=== PATIENT | female | born 1950 | race Caucasian/White ===

== ENCOUNTER 2024-12-04 19:21 | Emergency (ER) | payer MEDICARE ==
[2024-12-04 19:49] LABS: BASOPHILS ABSOLUTE AUTO 0.02 K/uL (0.02-0.10); BASOPHILS PERCENT AUTO 0.2 % (0.0-0.5); EOSINOPHILS ABSOLUTE AUTO 0.21 K/uL (0.04-0.40); EOSINOPHILS PERCENT AUTO 2.4 % (1.0-5.0); HEMATOCRIT 41.1 % (37.0-47.0); HEMOGLOBIN 13.2 g/dL (11.5-16.5); LYMPHOCYTES PERCENT AUTO 29.5 % (20.0-40.0); MEAN CORPUSCULAR HEMOGLOBIN 29.7 pg (27.0-32.0); MEAN CORPUSCULAR HGB CONC 32.1 g/dL (31.0-35.0); MEAN CORPUSCULAR VOLUME 92 fL (76-96); MONOCYTES ABSOLUTE AUTO 0.75 K/uL (0.20-0.80); MONOCYTES PERCENT AUTO 8.5 % (3.0-10.0); NEUTROPHILS ABSOLUTE AUTO 5.23 K/uL (2.00-7.50); NEUTROPHILS PERCENT AUTO 59.4 % (45.0-70.0); PLATELET COUNT,PLT 249 K/uL (150-500); RED BLOOD CELL COUNT 4.45 M/uL (3.80-5.80); RED CELL DISTRIBUTION WIDTH 14.9 % (11.0-16.0); WHITE BLOOD CELL COUNT,WBC 8.8 K/uL (4.0-11.0)
[2024-12-04 20:10] LABS: INR 1.2 (1.0-3.5); PTT,PARTIAL THROMBOPLSTIN TIME 26.2 SECONDS (24.4-33.2)
[2024-12-04 20:11] LABS: PROTHROMBIN TIME 12.1 sec (9.0-11.5)
[2024-12-04 20:15] LABS: MAGNESIUM 1.5 mg/dL (1.8-2.4); TROPONIN I HIGH SENSITIVITY 5.7 pg/ml (<=60.4)
[2024-12-04 20:19] LABS: A/G RATIO 1.1 (0.8-2.0); ALANINE AMINOTRANSFERASE,ALT 23 U/L (12-78); ALBUMIN 3.5 g/dL (3.4-5.0); ALKALINE PHOSPHATASE 84 U/L (46-116); ASPARTATE AMNIOTRANSFERASE,AST 17 U/L (15-37); BILIRUBIN TOTAL 0.4 mg/dL (0.0-1.0); BLOOD UREA NITROGEN,BUN 27 mg/dL (8-26); BUN/CREATININE RATIO 10.2 (6-25); CALCIUM 9.2 mg/dL (8.5-10.1); CARBON DIOXIDE,CO2 29.2 mmol/L (21.0-32.0); CHLORIDE,CL 107 mmol/L (98-107); CREATININE 2.65 mg/dL (0.55-1.02); ESTIMATED GFR 18 mL/min (>60); GLUCOSE RANDOM 228 mg/dL (74-100); POTASSIUM,K 5.2 mmol/L (3.5-5.1); PROTEIN TOTAL,TP 6.6 g/dL (6.4-8.2); SODIUM,NA 143 mmol/L (136-145)
[2024-12-04] MEDS: Sodium Chloride 0.9% 1,000 ML IV ONE (20:43)
[2024-12-04] MEDS: Heparin Sodium 5,000 Units/ML Vial IVPUSH ONE ×2 (21:34→21:35)
[2024-12-04] MEDS: Heparin Sodium/D5W 25,000 UNITS/500 ML BAG IV SCH (21:35)
[2024-12-04 22:19] VITALS: BP 137/53; PULSE 75
== END 2024-12-04 22:52 ==
LOC: LB.ED 19:21
DX: R07.9 Chest pain, unspecified (principal); N17.9 Acute kidney failure, unspecified; Z79.51 Long term (current) use of inhaled steroids; Z79.4 Long term (current) use of insulin; Z79.899 Other long term (current) drug therapy
CPT/HCPCS: 36415; 71045; 80053; 83605; 83735; 84484; 85025; 85379; 85610; 85730; 93005; 93010; 96361; 96365; 99285; 99285-25; J1644; J7030